=== PATIENT | male | born 1970 | race Caucasian/White ===

== ENCOUNTER 2018-11-13 20:19 | Emergency (ER) | payer SELFPAY ==
--- NOTE | 2018-11-13 20:27 | PDOC ---
Rapid Medical Evaluation Chief Complaint: Injury Time Seen by Provider: 11/13/18 20:23 Medical Evaluation: 11/13/18 20:23 I have performed a brief in-person evaluation of this patient. The patient presents with a chief complaint of: laceration to left eye brow and middle finger from table saw this evening. last tetanus vaccine was 7 years ago Pertinent physical exam findings:5cm deep linear laceration to left eyebrow. another 4cm laceration to distal aspect of distal whole phalange extending through nailbed of left middle finger I have ordered the following: x-rays of left middle finger The patient will proceed to the ED for further evaluation. Discharge Disposition - Diagnosis Laceration - Discharge Dispostion Condition at time of disposition: Stable - Referrals - Patient Instructions - Post Discharge Activity
[2018-11-13 20:28] VITALS: BMI 24.3
[2018-11-13] MEDS ORDERED: DIPHTH,PERTUSS(ACELL),TET 0.5 ML DISP.SYRIN IM ONE ×2 (21:12→21:59)
--- NOTE | 2018-11-13 21:12 | PDOC ---
History of Present Illness <Nader Cleary - Last Filed: 11/13/18 22:19> <Haley Nicole - Last Filed: 11/13/18 23:24> - General Chief Complaint: Injury Stated Complaint: HEAD INJURY Time Seen by Provider: 11/13/18 20:23 Past History <Nader Cleary - Last Filed: 11/13/18 22:19> - Past Medical History COPD: No - Immunization History Immunization Up to Date: Yes - Suicide/Smoking/Psychosocial Hx Smoking History: Current every day smoker Number of Cigarettes Smoked Daily: 10 Information on smoking cessation initiated: No <Haley Nicole - Last Filed: 11/13/18 23:24> - Past Medical History Allergies/Adverse Reactions: Allergies Allergy/AdvReac Type Severity Reaction Status Date / Time No Known Allergies Allergy Verified 11/13/18 20:27 *Physical Exam - Vital Signs Last Vital Signs Temp Pulse Resp BP Pulse Ox 98 F 60 18 72/40 L 98 11/13/18 20:22 11/13/18 20:22 11/13/18 20:22 11/13/18 20:22 11/13/18 20:22 <Nader Cleary - Last Filed: 11/13/18 22:19> - Vital Signs Last Vital Signs Temp Pulse Resp BP Pulse Ox 98 F 60 18 72/40 L 98 11/13/18 20:22 11/13/18 20:22 11/13/18 20:22 11/13/18 20:22 11/13/18 20:22 <Haley Nicole - Last Filed: 11/13/18 23:24> Procedures - Laceration/Wound Repair Right Face Wound Length: 5.0 to 7.5 cm Wound Explored: clean, no foreign body present Wound's Depth, Shape: superficial Irrigated w/ Saline: Yes Betadine Prep: No Anesthesia: 1% Lidocaine w/ Epi Amount of Anesthetic (ccs): 5 Wound Debrided: minimal Wound Repaired With: Sutures Suture Size/Type: 5:0 Number of Sutures: 12 Layer Closure: No Sterile Dressing Applied: No <Nader Cleary - Last Filed: 11/13/18 22:19> ED Treatment Course - Medications Given in the ED: ED Medications Discontinued Medications Generic Name Dose Route Start Last Admin Trade Name Freq PRN Reason Stop Dose Admin Diphtheria/Tetanus/Acell Pertussis 0.5 ml 11/13/18 21:12 11/13/18 22:07 Boostrix - IM 11/13/18 21:13 0.5 ml .ONCE ONE Administration Cefazolin Sodium 1 gm in 50 mls @ 100 mls/hr 11/13/18 21:17 11/13/18 22:05 Ancef 1 Gm Premixed Ivpb - IVPB 11/13/18 21:46 100 mls/hr ONCE ONE Administration <Nader Cleary - Last Filed: 11/13/18 22:19> Medical Decision Making - Medical Decision Making 11/13/18 21:27 HPI 48 year old man (R handed) with no pmhx who presents with laceration the L eyebrow, and L middle digit after using a table saw. The patient reports that the saw slipped and piece of wood flew into his eyebrow. He denies taking anything for pain. Denies any numbness or tingling in the digit and report full range of motion. ROS GENERAL/CONSTITUTIONAL: No fever or chills. No weakness. HEAD, EYES, EARS, NOSE AND THROAT: No change in vision. No ear pain or discharge. CARDIOVASCULAR: No chest pain or shortness of breath RESPIRATORY: No cough, wheezing, or hemoptysis. MUSCULOSKELETAL: See HPI SKIN: No rash HEMATOLOGIC/LYMPHATIC: No anemia, easy bleeding, or history of blood clots. PE GENERAL: Awake, alert, and fully oriented, in no acute distress HEAD: L eyebrow laceration approx 3cm, normocephalic, atraumatic EYES: EOMI, sclera anicteric, conjunctiva clear ENT: oropharynx clear without exudates. Moist mucosa NECK: Normal ROM, supple LUNGS: No distress, speaks full sentences, clear to auscultation bilaterally HEART: Regular rate and rhythm, normal S1 and S2, no murmurs, rubs or gallops, peripheral pulses normal and equal bilaterally. EXTREMITIES : L middle digit laceration with into the nailbed with avulsion of pulp of digit NEUROLOGICAL: Cranial nerves II through XII grossly intact. Normal speech, normal gait, no focal sensorimotor deficits SKIN: Warm, Dry, normal turgor, no rashes or lesions noted MDM 48 year old man (R handed) with no pmhx who presents with laceration the L eyebrow, and L middle digit after using a table saw. The patient reports that the saw slipped and piece of wood flew into his eyebrow. DDX including but not limited to: laceration r./o foreign body W/U: - XR L hand TX: - tetanus booster, ancef ED Course: Hand laceration extending into nailbed and with avulsion of DIP pulp, will contact hand speciality Attempted to contact hand speciality/plastics Dr. Veras unsuccessful. 11/13/18 21:56 Third attempt made to contact Dr. Veras, pending call back Patient signed out to resident Dr. Madiha Nicole, PGY2 Emergency Medicine <Haley Nicole - Last Filed: 11/13/18 23:24> *DC/Admit/Observation/Transfer <Nader Cleary - Last Filed: 11/13/18 22:19> <Haley Nicole - Last Filed: 11/13/18 23:24> Diagnosis at time of Disposition: Laceration - Discharge Dispostion Condition at time of disposition: Stable
[2018-11-13] MEDS ORDERED: CEFAZOLIN 1 GM/D5W 1 GM/50 ML BAG IVPB ONE (21:17)
[2018-11-13] MEDS ORDERED: CEFAZOLIN 1 GM/D5W 1 GM/50 ML BAG ONE (21:59)
[2018-11-13] MEDS ORDERED: BACITRACIN 0.9 GM PACKET ONE (22:10)
--- NOTE | 2018-11-13 23:33 | PDOC ---
Documentation entered by Amadeo Mcmahan SCRIBE, acting as scribe for Yadi Rivas MD. Yadi Rivas MD: This documentation has been prepared by the ayadeMartir Elijah, SCRIBE, under my direction and personally reviewed by me in its entirety. I confirm that the documentation accurately reflects all work, treatment, procedures, and medical decision making performed by me. Attending Attestation - Resident Resident Name: Haley Nicole - ED Attending Attestation I have performed the following: I have examined & evaluated the patient, The case was reviewed & discussed with the resident, I agree w/resident's findings & plan - HPI HPI: 11/13/18 21:49 Patient is a 48 year old male with no reported past medical history who presents to the ED s/p laceration to L eyebrow and middle finger on the left hand occurring earlier today. Patient was using a table saw and a piece of wood flew and caused the injury. Patient has not taken anything for pain. Allergies: NKA Social History: Tobacco User - Physicial Exam PE: 11/13/18 22:05 GENERAL: Awake, alert, and fully oriented, in no acute distress HEAD: +L Eyebrow Laceration 3cm EYES: PERRLA, EOMI, sclera anicteric, conjunctiva clear ENT: Auricles normal inspection, hearing grossly normal, nares patent, oropharynx clear without exudates. Moist mucosa NECK: Normal ROM, supple, no lymphadenopathy, JVD, or masses LUNGS: Breath sounds equal, clear to auscultation bilaterally. No wheezes, and no crackles HEART: Regular rate and rhythm, normal S1 and S2, no murmurs, rubs or gallops ABDOMEN: Soft, nontender, normoactive bowel sounds. No guarding, no rebound. No masses EXTREMITIES:+Left middle digit Avulsion wound 3cm, tenderness NEUROLOGICAL: Cranial nerves II through XII grossly intact. Normal speech, normal gait SKIN: Warm, Dry, normal turgor, no rashes or lesions noted. 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 We have no plastics or hand specialist available trinity Nassar is the accepting physician at [facility] 11/14/18 00:22 11/14/18 00:22
--- NOTE | 2018-11-14 00:14 | PDOC ---
*Physical Exam - Vital Signs Last Vital Signs Temp Pulse Resp BP Pulse Ox 98 F 60 18 72/40 L 98 11/13/18 20:22 11/13/18 20:22 11/13/18 20:22 11/13/18 20:22 11/13/18 20:22 ED Treatment Course - Medications Given in the ED: ED Medications Discontinued Medications Generic Name Dose Route Start Last Admin Trade Name Santos PRN Reason Stop Dose Admin Diphtheria/Tetanus/Acell Pertussis 0.5 ml 11/13/18 21:12 11/13/18 22:07 Boostrix - IM 11/13/18 21:13 0.5 ml .ONCE ONE Administration Cefazolin Sodium 1 gm in 50 mls @ 100 mls/hr 11/13/18 21:17 11/13/18 22:05 Ancef 1 Gm Premixed Ivpb - IVPB 11/13/18 21:46 100 mls/hr ONCE ONE Administration Medical Decision Making - Medical Decision Making Discussed patient with Dr. Levine, plastic surgeon at [facility]. He recommended that the patient be transferred to their ED to be seen. We will plan to have him discharged by private owned vehicle (POV) to be seen at [facility]. 11/14/18 00:09 Talked to patient on the phone, they are being told that they need to be re- evaluated before there is any consideration of having the plastic surgeon take a look. He requested that I send in antibiotics to his pharmacy ([facility] on [address] ). 11/14/18 02:45 *DC/Admit/Observation/Transfer Diagnosis at time of Disposition: Laceration - Discharge Dispostion Disposition: TRANSFER ACUTE CARE/OTHER HOSP Condition at time of disposition: Guarded Decision to Admit order: No - Referrals - Patient Instructions Printed Discharge Instructions: DI for Laceration Repair, DI for Suture Removal Additional Instructions: You are being transferred by private vehicle to [facility] to see plastic surgeon Dr. Levine. Your laceration is not currently closed and you are being transferred to a higher level of care. You are to drive directly to their ED. Please show them the disk containing your finger X ray. The risks of not going directly to [place] include possible infection, bleeding, and . - Post Discharge Activity
[2018-11-14 00:22] VITALS: BP 118/64; PULSE 76; TEMP 98.7
[2018-11-14] MEDS ORDERED: ACETAMINOPHEN INJECTION 100 ML IVPB ONE (00:23)
[2018-11-14] MEDS ORDERED: ACETAMINOPHEN 1000 MG/100 ML VIAL (NON FORMULARY) IVPB ONE (00:23)
== END 2018-11-14 01:00 | disposition short-term general hospital (02) ==
LOC: JER 20:19
PROC: 0JQ10ZZ Repair Face Subcutaneous Tissue and Fascia, Open Approach (ICD-10-PCS; principal; 2018-11-13)
PROC: 3E0234Z Introduction of Serum, Toxoid and Vaccine into Muscle, Percutaneous Approach (ICD-10-PCS; 2018-11-13)
PROC: 3E03329 Introduction of Other Anti-infective into Peripheral Vein, Percutaneous Approach (ICD-10-PCS; 2018-11-13)
PROC: 3E033NZ Introduction of Analgesics, Hypnotics, Sedatives into Peripheral Vein, Percutaneous Approach (ICD-10-PCS; 2018-11-13)
DX: S01.112A Laceration without foreign body of left eyelid and periocular area, initial encounter (principal); S61.313A Laceration without foreign body of left middle finger with damage to nail, initial encounter; W20.8XXA Other cause of strike by thrown, projected or falling object, initial encounter; W31.2XXA Contact with powered woodworking and forming machines, initial encounter; Y93.89 Activity, other specified; Y92.89 Other specified places as the place of occurrence of the external cause; Y99.0 Civilian activity done for income or pay
CPT/HCPCS: 73140-TC-LT-FY; 90715; 99282-25; J0131

== ENCOUNTER 2018-11-22 09:45 | Emergency (ER) | payer SELFPAY | END 2018-11-22 10:48 | disposition home or self-care (01) | LOC: JERFT 09:45 | DX: Z48.817 Encounter for surgical aftercare following surgery on the skin and subcutaneous tissue (principal); Z48.02 Encounter for removal of sutures ==